=== PATIENT | female | born 2000 | race Two or more races ===

== ENCOUNTER 2020-05-02 17:03 | Observation (INO) | payer SELFPAY ==
[~2020-05-02] VITALS: Ht 154.9 cm; Wt 80.3 kg
[2020-05-02] MEDS ORDERED: IV RINGERS,LACTATED 1000ML 1,000 ML IV SCH (17:21)
[2020-05-02 17:38] VITALS: BP 129/75
[2020-05-02 17:46] LABS: BILIRUBIN,URINE NEGATIVE (NEG); CLARITY,URINE CLEAR; COLOR,URINE YELLOW; NITRITE,URINE POSITIVE (NEG); PH,URINE 6.5 (<5.0-8.0); PROTEIN,URINE 30 mg/dL (NEG-TRACE); UROBILINOGEN,URINE 0.2 mg/dL (0.2 mg/dL)
[2020-05-02 17:49] LABS: AMNIO PT POSITIVE
[2020-05-02 17:52] LABS: SQUAMOUS EPITHELIAL CELL,UR MOD /LPF
[2020-05-02 17:53] LABS: BACTERIA,URINE MODERATE /HPF (0-FEW); RBC,URINE 0 /HPF (0-2)
[2020-05-02] MEDS ORDERED: BETAMET ACET&NA PHOS 30 MG/5 ML VIAL. IM ONE (18:00)
[2020-05-02] MEDS ORDERED: AMPICILLIN SODIUM 2 GM in IV NORMAL SALINE 100ML 100 ML IV ONE (18:00)
[2020-05-02] MEDS ORDERED: MAGNESIUM SULFATE 4GM 100 ML IV ONE (19:00)
[2020-05-02] MEDS ORDERED: MAGNESIUM SULFATE 20GM 500 ML IV SCH (19:15)
== END 2020-05-02 19:20 | disposition short-term general hospital (02) ==
LOC: 3 SO LND 17:03
PROVIDERS: ADMIT Obstetrics & Gynecology; ATTEND Obstetrics & Gynecology
DX: O42.913 Preterm premature rupture of membranes, unspecified as to length of time between rupture and onset of labor, third trimester (principal); Z3A.31 31 weeks gestation of pregnancy
CPT/HCPCS: 36415; 81001; 84112; 87086; 96365; 96372; 96375; G0378; G0379; J0290; J0702; J3475; J7120